=== PATIENT | male | born 1995 | race Caucasian/White ===

== ENCOUNTER 2022-06-05 14:12 | Emergency (ER) | payer OTHER, SELFPAY ==
--- NOTE | ~2022-06-05 | XR_ITS ---
EXAM: XR shoulder LT min 2V DATE: 06/05/2022 14:41 HISTORY: left shoulder pain,POST PULLING INJUY,STATED OLD AC JOINT. COMPARISON: None available. FINDINGS: Normal mineralization. No acute fracture or dislocation. No lytic or blastic lesion. Super ior displacement of the distal left clavicle relative to the acromion, reportedly a remote injury. Ab normal morphology of the glenoid. No erosion or periosteal change. Soft tissues within normal limits. IMPRESSION: No acute osseous finding the left shoulder. Old left AC joint injury. Abnormal glenoid mo rphology which may be related to remote posttraumatic or congenital change. Reviewed, dictated and finalized at location K. IMPRESSION: No acute osseous finding the left shoulder. Old left AC joint injur y. Abnormal glenoid morphology which may be related to remote posttraumatic or congenital change.
--- NOTE | 2022-06-05 14:21 | ED.UPPEXIN ---
HPI - Extremity Injury (Upper) General Chief Complaint: Extremity Injury, Upper Stated Complaint: Left Shoulder Pain Time Seen by Provider: 06/05/22 14:49 Source: patient and RN notes reviewed Mode of arrival: ambulatory Limitations: no limitations History of Present Illness HPI narrative: 26-year-old male presents to the [facility] with complaints of left shoulder pain post AC ligament tear 6 weeks ago per patient. Patient reports last week he felt fine, started having increased pain over the last few days to the anterior portion of the shoulder. Patient reports that when he 1st injured it 6 weeks ago he wore a sling for several days. Has decreased range motion able to raise to 90? both anterior and lateral, pain develops anterior shoulder. Full range of motion without discomfort of the elbow and wrist. [employer]. Positive radial pulse. Sensation intact to fingers and capillary refill under 2 seconds Related Data Home Medications Medication Instructions Recorded Confirmed folic acid 1 mg tablet 1 mg PO DAILY 06/05/22 06/05/22 loratadine 10 mg tablet (Claritin) 10 mg PO DAILY 06/05/22 06/05/22 naproxen 500 mg tablet,delayed 500 mg PO BID 06/05/22 06/05/22 release (EC-Naproxen) quetiapine 100 mg tablet 100 mg PO DAILY 06/05/22 06/05/22 quetiapine 25 mg tablet 25 mg PO DAILY 06/05/22 06/05/22 thiamine HCl (vitamin B1) 100 mg 100 mg PO DAILY 06/05/22 06/05/22 tablet Allergies Allergy/AdvReac Type Severity Reaction Status Date / Time shellfish derived Allergy Intermediate Other Verified 06/05/22 14:29 Review of Systems Review of Systems: All systems reviewed & are unremarkable except as noted in HPI and below Constitutional: Constitutional: Reports no additional constitutional complaints, Denies chills and Denies fever(s) Eyes: Eyes: Reports no additional eye complaints ENT: Reports system reviewed and no additional complaints, except as documented Cardiovascular: Cardiovascular: Reports no additional cardiovascular complaints Respiratory: Respiratory: Reports no additional respiratory complaints Gastrointestinal: Gastrointestinal: Reports no additional gastrointestinal complaints Musculoskeletal: Musculoskeletal: Reports as per HPI and Reports arthralgias (Left shoulder) Integumentary/Breasts: Skin/Breast: Reports system reviewed and no additional complaints, except as docu Neurologic: Reports system reviewed and no additional complaints, except as documented Psychiatric: Psychiatric: Reports no additional psychiatric complaints Allergic/Immunologic: Allergic/Immunologic: Reports no additional allergic/immunologic complaints [facility] Past Medical History Medical History (Updated 06/06/22 @ 11:47 by Luci Carter APRN) Acromioclavicular joint injury Comments At the time of my signature, I reviewed and agree with the nursing past medical, surgical, social, and family history. There is no relevant family history pertinent to the patient complaint. Exam Const: General: healthy appearing, no acute distress, alert and well nourished Nutritional Appearance: well nourished Orientation/consciousness: patient oriented x3 Limitations: no limitations HENMT: Head: normal to inspection Ears: external ears normal Eyes: General: appearance normal, both eyes and all related structures Pupils: Equal, round and reactive pupils present Neck: Neck: normal visual inspection, no lymphadenopathy and no meningeal signs Chest: Chest palpation & inspection: normal inspection of the chest Resp: Effort & Inspection: normal respiratory effort and no use of accessory muscles Auscultation: clear to auscultation bilaterally, no crackles, no rales, no rhonchi and no wheezes Cardio: Rate: regular rate Rhythm: regular rhythm Back/Spine/Pelvis: Cervical Spine: normal cervical lordosis, cervical ROM normal and No Cervical spine tenderness Thoracic/Lumbar Spine: thoracic and lumbar spine normal to inspection, thoraco-lumba
[2022-06-05 14:52] VITALS: BP 152/79; PULSE 72; RESP 18; TEMP 36.8; O2SAT 98
[2022-06-05] MEDS: KETOROLAC (*BKC) 60 MG/2 ML VIAL IM (15:05)
== END 2022-06-05 15:32 | disposition home or self-care (01) ==
PROVIDERS: Emergency Provider Nurse Practitioner
DX: M25.512 Pain in left shoulder (principal)
CPT/HCPCS: 73030; 96372; 99203; G0463; J1885